=== PATIENT | female | born 1940 | race Caucasian/White ===

== ENCOUNTER 2016-09-08 13:09 | Emergency (ER) | payer MEDICARE ==
[~2016-09-08] VITALS: Ht 149.9 cm; Wt 36.4 kg
[2016-09-08 13:12] VITALS: BP 110/69; PULSE 100; RESP 16
--- NOTE | 2016-09-08 13:21 | PD ---
Physical Exam Time Seen by Provider: 13:16 Narrative 76 year old female with history of COPD currently on oxygen via [place] presents to the ED for psychiatric evaluation at the instruction of her PCP Dr. Yates. Pt has not been eating as much. She states she is fine. Family states she was recently discharged from [facility] following CHF exacerbation. She has been refusing home health care and has been having "different behaviors." Pt states "nothing is wrong." Denies SI/HI. Daughter informs me pt has been having increasing confusion since her hospitalization. She has been having difficulty with time and date Her gait has also been less steady. They do not want her to have a psychiatric screen. They would like to make sure that there is nothing wrong and are okay with the fact this may be an exacerbation or deterioration of her dementia. Data Data Last Documented VS Vital Signs Date Time Temp Pulse Resp B/P Pulse Ox O2 Delivery O2 Flow Rate FiO2 09/08/16 13:12 100 16 110/69 Nasal Cannula Orders Complete Blood Count With Diff (09/08/16 13:21) Basic Metabolic Panel (Bmp) (09/08/16 13:21) Urinalysis - C+S If Indicated (09/08/16 13:21) Drug Screen, Random Urine (09/08/16 13:21) Alcohol (Ethanol) (09/08/16 13:21) Psych Screen (09/08/16 13:21) Ct Brain W/O Iv Contrast(Rout) (09/08/16 ) Labs Laboratory Tests Test 09/08/16 09/08/16 09/08/16 13:49 14:16 14:31 White Blood Count 15.8 TH/MM3 Red Blood Count 5.48 MIL/MM3 Hemoglobin 16.5 GM/DL Hematocrit 50.0 % Mean Corpuscular Volume 91.2 FL Mean Corpuscular Hemoglobin 30.0 PG Mean Corpuscular Hemoglobin 32.9 % Concent Red Cell Distribution Width 14.6 % Platelet Count 221 TH/MM3 Mean Platelet Volume 8.8 FL Neutrophils (%) (Auto) 80.3 % Lymphocytes (%) (Auto) 12.2 % Monocytes (%) (Auto) 5.7 % Eosinophils (%) (Auto) 1.0 % Basophils (%) (Auto) 0.8 % Neutrophils # (Auto) 12.7 TH/MM3 Lymphocytes # (Auto) 1.9 TH/MM3 Monocytes # (Auto) 0.9 TH/MM3 Eosinophils # (Auto) 0.2 TH/MM3 Basophils # (Auto) 0.1 TH/MM3 CBC Comment DIFF FINAL Differential Comment Sodium Level 136 MEQ/L Potassium Level 4.1 MEQ/L Chloride Level 97 MEQ/L Carbon Dioxide Level 31.4 MEQ/L Anion Gap 8 MEQ/L Blood Urea Nitrogen 18 MG/DL Creatinine 0.59 MG/DL Estimat Glomerular Filtration 100 ML/MIN Rate Random Glucose 94 MG/DL Calcium Level 9.3 MG/DL Ethyl Alcohol Level LESS THAN 3 MG/DL Urine Opiates Screen NEG Urine Barbiturates Screen NEG Urine Amphetamines Screen NEG Urine Benzodiazepines Screen NEG Urine Cocaine Screen NEG Urine Cannabinoids Screen NEG Urine Color YELLOW Urine Turbidity CLEAR Urine pH 5.5 Urine Specific [place] 1.020 Urine Protein TRACE mg/dL Urine Glucose (UA) NEG mg/dL Urine Ketones NEG mg/dL Urine Occult Blood NEG Urine Nitrite NEG Urine Bilirubin NEG Urine Urobilinogen LESS THAN 2.0 MG/DL Urine Leukocyte Esterase NEG Urine RBC 1 /hpf Urine WBC 1 /hpf Urine Calcium Oxalate Crystals FEW /hpf Urine Hyaline Casts 3 /lpf Urine Mucus FEW /lpf Microscopic Urinalysis Comment CULT NOT INDICATED MDM Medical Record Reviewed: Yes Supervised Visit with YAMILKA: No Differential Diagnosis Dementia versus Alzheimer's disease versus a Lif[place] abnormality versus intracranial hemorrhage Narrative Course 76-year-old female presents to the emergency department for evaluation at the urging of her primary care provider. Family states that she is to get further evaluation of her dementia. I explained to him that we are not that type of facility but I'm happy to make sure that there is nothing else that could be worsening her confusion. ROS- negative except for what was discussed in history of present illness. GENERAL: Thin elderly female patient coming sitting in the chair, with oxygen in place via nasal cannula. She is oriented 3. SKIN: Warm and dry. HEAD: Normocephalic. EYES: No scleral icterus. No injection or drainage. NECK: Supple, trachea midline. No JVD or lymphadenopathy. CARDIOVASCULAR: Elevated rate and rhythm area 2/6 systolic murmur. RESPIRATORY: Breath sounds diminished equal bilaterally. No accessory muscle use. GASTROINTESTINAL: Abdomen soft, non-tender, nondistended. MUSCULOSKELETAL: No cyanosis. 1+ bilateral lower extremity edema. Distal pulses are palpable. Cap refill is within normal limits. BACK: Nontender without obvious deformity. No CVA tenderness. Workup was initiated in triage. CBC is with a leukocytosis of 15.8 however patient has been on steroids since her discharge from the hospital. BMP and urinary without acute concern. CT imaging is normal examination of the patient this age. I discussed the results with the family. They would like to take the mother home. They state that they have good follow-up with her primary care provider. Patient will be discharged at this time. They agree to return immediately with any acute worsening of symptoms. Diagnosis Primary Impression: Dementia Qualified Code: F03.90 - Dementia without behavioral disturbance, unspecified dementia type Additional Impression: Altered mental status Qualified Code: R41.82 - Altered mental status, unspecified altered mental status type Referrals: Primary Care Physician Patient Instructions: Dementia (ED), General Instructions Additional Instruction: Follow up with your primary care provider Return immediately with acute worsening of symptoms Med/Other Pt SpecificInfo: No Change to Meds Disposition: 01 DISCHARGE HOME Condition: Stable Karly Valenzuela Sep 08, 2016 13:21
[2016-09-08 14:24] LABS: AUTOMATED NEUTROPHIL # 12.7 TH/MM3 (1.8-7.7); BASOPHIL # 0.1 TH/MM3 (0-0.2); BASOPHIL % 0.8 % (0.0-2.0); EOSINOPHIL # 0.2 TH/MM3 (0-0.4); HEMO FLAGS DIFF FINAL; LYMPH % 12.2 % (9.0-44.0); LYMPHOCYTE # 1.9 TH/MM3 (1.0-4.8); MEAN CELL VOLUME 91.2 FL (80.0-100.0); MEAN CORPUSCULAR HGB CONC 32.9 % (32.0-36.0); MONO % 5.7 % (0.0-8.0); NEUT % 80.3 % (16.0-70.0); PLATELET COUNT 221 TH/MM3 (150-450); RED BLOOD COUNT 5.48 MIL/MM3 (4.00-5.30); RED CELL DISTRIBUTION WIDTH 14.6 % (11.6-17.2); WHITE BLOOD COUNT 15.8 TH/MM3 (4.0-11.0)
[2016-09-08 14:37] LABS: ANION GAP 8 MEQ/L (5-15); BICARBONATE 31.4 MEQ/L (21.0-32.0); BLOOD UREA NITROGEN 18 MG/DL (7-18); CHLORIDE 97 MEQ/L (98-107); GLOMERULAR FILTRATION RATE 100 ML/MIN (>89); POTASSIUM 4.1 MEQ/L (3.5-5.1); SODIUM (NA) 136 MEQ/L (136-145)
[2016-09-08 14:54] LABS: BLOOD, URINE NEG (NEG); CALCIUM OXALATE CRYSTALS,URINE FEW /hpf; COMMENT (UR) CULT NOT INDICATED; CULTURE IF INDICATED CULT NOT INDICATED; GLUCOSE,URINE NEG (NEG); HYALINE CAST, URINE 3 /lpf (RARE); KETONE, URINE NEG (NEG); MUCUS URINE FEW /lpf (OCC); NITRITE,URINE NEG (NEG); PH, URINE 5.5 (5.0-8.5); URINE COLOR YELLOW (YELLW/STRAW)
[2016-09-08 15:04] LABS: AMPHETAMINE, URINE NEG (NEG); BARBITURATES, URINE NEG (NEG); COCAINE, URINE NEG (NEG)
--- NOTE | 2016-09-08 15:21 | RADRPT ---
EXAM DATE/TIME: 09/08/2016 15:01 [place] COMPARISON: No previous studies available for comparison. INDICATIONS : Altered mental status. RADIATION DOSE: 31.47 CTDIvol (mGy) MEDICAL HISTORY : Chronic obstructive pulmonary disease. SURGICAL HISTORY : None. ENCOUNTER: Initial ACUITY: 1 day PAIN SCALE: 0/10 LOCATION: cranial TECHNIQUE: Multiple contiguous axial images were obtained of the head. Using automated exposure control and adj ustment of the mA and/or kV according to patient size, radiation dose was kept as low as reasonably a chievable to obtain optimal diagnostic quality images. FINDINGS: CEREBRUM: The ventricles are normal for age. No evidence of midline shift, mass lesion, hemorrhage or acute in farction. No extra-axial fluid collections are seen. POSTERIOR FOSSA: The cerebellum and brainstem are intact. The 4th ventricle is midline. The cerebellopontine angle i s unremarkable. EXTRACRANIAL: The visualized portion of the orbits is intact. SKULL: The calvaria is intact. No evidence of skull fracture. CONCLUSION: Normal examination for a patient of this age. Renetta Castro MD on September 08, 2016 at 15:19 Board Certified Radiologist. This report was verified electronically.
[2016-09-08] MEDS ORDERED: ALBU.5I NEB (15:42)
[2016-09-08] MEDS ORDERED: SPIRCAP INH (15:42)
[2016-09-08] MEDS ORDERED: PRED10 PO (15:42)
[2016-09-08] MEDS ORDERED: ADVA250A INH (15:42)
[2016-09-08] MEDS ORDERED: POTA10CA PO (15:42)
[2016-09-08] MEDS ORDERED: FURO20TA PO (15:42)
== END 2016-09-08 15:55 | disposition home or self-care (01) ==
LOC: NETRI 13:09
DX: F03.90 Unspecified dementia, unspecified severity, without behavioral disturbance, psychotic disturbance, mood disturbance, and anxiety (principal); R41.82 Altered mental status, unspecified; R26.81 Unsteadiness on feet; Z99.81 Dependence on supplemental oxygen
CPT/HCPCS: 70450; 80048; 80307; 80320; 81001; 85025